=== PATIENT | male | born 1945 | race Caucasian/White ===

== ENCOUNTER 2017-01-05 09:12 | Outpatient (CLI) | payer MEDICARE, OTHER ==
[2017-01-05 10:41] LABS: ALT (SGPT) 18 U/L (0-55); AST (SGOT) 16 U/L (5-34); Alkaline Phosphatase 51 U/L (40-150); Anion Gap 15 mmol/L (10-20); BUN (Urea Nitrogen) 16 mg/dL (8.4-25.7); Bilirubin, Total 0.9 mg/dL (0.2-1.2); Calc. Creatinine Clearance 0 mL/min (70-130); Calcium 9.2 mg/dL (7.8-10.44); Carbon Dioxide 27 mmol/L (23-31); Cardiac Risk 3.5 (Less than 4.5); Chloride 104 mmol/L (98-107); Cholesterol 101 mg/dL (< 200 Desired); Estimated GFR-MDRD 76; Globulin 2.9 g/dL (2.4-3.5); Glucose 70 mg/dL (80-115); HDL Cholesterol 29 mg/dL (>60 Neg Risk); LDL Cholesterol, Calculated 52 mg/dL; Potassium 4.1 mmol/L (3.5-5.1); Protein, Total 6.9 g/dL (5.8-8.1); Sodium 142 mmol/L (136-145); Triglycerides 101 mg/dL (Less than 150)
[2017-01-05 10:53] LABS: #Basophils 0.1 thou/uL (0.0-0.2); #Eosinphils 0.2 thou/uL (0.0-0.7); #Lymphocytes 1.5 thou/uL (1.20-3.40); #Monocytes 1.2 thou/uL (0.11-0.59); #Neutrophils 8.7 thou/uL (1.40-6.50); %Basophils 0.6 % (0.0-1.0); %Eosinophils 1.9 % (0.0-10.0); %Lymphocytes 12.9 % (21.0-51.0); %Monocytes 10.4 % (0.0-10.0); %Neutrophils 74.2 % (42.0-75.0); Hemoglobin 16.1 g/dL (14.0-18.0); Mean Corpuscular HGB CONC 32.1 g/dL (32.0-36.0); Mean Corpuscular Hemoglobin 27.9 pg (27.0-31.0); Mean Corpuscular Volume 86.8 fl (80.0-94.0); Mean Platelet Volume 9.4 fL (7.4-10.4); Platelet Count 194 thou/uL (130-400); RBC Distribution Width 17.3 % (11.5-14.5); Red Blood Cell (RBC) Count 5.78 mill/uL (4.70-6.10); White Blood Cell (WBC) Count 11.7 thou/uL (4.8-10.8)
== END 2017-01-05 09:13 | disposition home or self-care (01) ==
LOC: HPCALD 09:12
PROVIDERS: ATTEND Family Medicine
DX: Z12.5 Encounter for screening for malignant neoplasm of prostate (principal); I10 Essential (primary) hypertension; E78.5 Hyperlipidemia, unspecified; E29.1 Testicular hypofunction
CPT/HCPCS: 36415; 80053; 80061; 84403; 85025; G0103

== ENCOUNTER 2017-02-14 07:56 | Outpatient (CLI) | payer MEDICARE, OTHER ==
[2017-02-14 08:29] LABS: ALT (SGPT) 18 U/L (8-55); AST (SGOT) 13 U/L (5-34); Albumin 4.1 g/dL (3.4-4.8); Alkaline Phosphatase 47 U/L (40-150); Anion Gap 16 mmol/L (10-20); BUN (Urea Nitrogen) 20 mg/dL (8.4-25.7); Bilirubin, Total 0.7 mg/dL (0.2-1.2); Calc. Creatinine Clearance 0 mL/min (70-130); Calcium 9.7 mg/dL (7.8-10.44); Carbon Dioxide 31 mmol/L (23-31); Cardiac Risk 3.7 (Less than 4.5); Chloride 103 mmol/L (98-107); Cholesterol 116 mg/dl (< 200 Desired); Estimated GFR-MDRD 60; Globulin 3.3 g/dL (2.4-3.5); Glucose 210 mg/dL (80-115); HDL Cholesterol 31 mg/dL (>60 Neg Risk); LDL Cholesterol, Calculated 55 mg/dL; Potassium 4.8 mmol/L (3.5-5.1); Protein, Total 7.4 g/dL (5.8-8.1); Sodium 145 mmol/L (136-145); Triglycerides 151 mg/dL (Less than 150)
== END 2017-02-14 07:57 | disposition home or self-care (01) ==
LOC: BURLAB 07:56
PROVIDERS: ATTEND Internal Medicine Cardiovascular Disease
DX: E78.00 Pure hypercholesterolemia, unspecified (principal)
CPT/HCPCS: 36415; 80053; 80061

== ENCOUNTER 2018-07-25 14:30 | Outpatient (CLI) | payer MEDICARE ==
--- NOTE | 2018-07-25 20:36 | RAD ---
LEFT HIP TWO VIEWS 07/25/18 No fracture is seen. There is minor joint spaces narrowing but the articular surfaces are smooth. Min imal bony spurring is present. the adjacent pubic ring appears intact. IMPRESSION: Minimal arthritic changes. POS: HOME
== END 2018-07-25 14:31 | disposition home or self-care (01) ==
LOC: BURRAD 14:30
PROVIDERS: ATTEND Family Medicine
DX: M25.552 Pain in left hip (principal); M16.12 Unilateral primary osteoarthritis, left hip

== ENCOUNTER 2018-08-22 21:24 | Emergency (ER) | payer MEDICARE ==
[2018-08-22] MEDS ORDERED: Fentanyl 100 MCG/2 ML VIAL ONE (21:31)
[2018-08-22] MEDS ORDERED: Nitroglycerin 50 MG/250 ML BOT 250 ML ONE (21:34)
[2018-08-22] MEDS ORDERED: Furosemide 100 MG/10 ML VIAL ONE (21:34)
[2018-08-22 21:46] LABS: #Lymphocytes 0.3 thou/uL (1.20-3.40); #Monocytes 0.3 thou/uL (0.11-0.59); #Neutrophils 10.4 thou/uL (1.40-6.50); %Basophils 0.4 % (0.0-1.0); %Monocytes 2.3 % (0.0-10.0); %Neutrophils 94.4 % (42.0-75.0); Hemoglobin 18.3 g/dL (14.0-18.0); Mean Corpuscular HGB CONC 35.3 g/dL (32.0-36.0); Mean Corpuscular Hemoglobin 30.5 pg (27.0-31.0); Mean Corpuscular Volume 86.3 fL (78.0-98.0); Mean Platelet Volume 9.4 fL (7.4-10.4); Platelet Count 176 thou/uL (130-400); RBC Distribution Width 12.4 % (11.5-14.5)
[2018-08-22] MEDS ORDERED: DOPamine 400 MG/D5W 250 ML 250 ML ONE (21:49)
[2018-08-22 21:55] LABS: ALT (SGPT) 17 U/L (8-55); AST (SGOT) 22 U/L (5-34); Albumin 3.7 g/dL (3.4-4.8); Alkaline Phosphatase 75 U/L (40-150); Anion Gap 21 mmol/L (10-20); BUN (Urea Nitrogen) 30 mg/dL (8.4-25.7); Bilirubin, Total 1.4 mg/dL (0.2-1.2); Calc. Creatinine Clearance 0 mL/min (70-130); Calcium 10.3 mg/dL (7.8-10.44); Carbon Dioxide 21 mmol/L (23-31); Chloride 93 mmol/L (98-107); Estimated GFR-MDRD 54; Globulin 3.8 g/dL (2.4-3.5); Glucose 520 mg/dL (83-110); Potassium 4.2 mmol/L (3.5-5.1); Protein, Total 7.5 g/dL (5.8-8.1); Sodium 131 mmol/L (136-145)
[2018-08-22] MEDS ORDERED: Insulin Regular 300 UNITS/3 ML VIAL ONE (22:02)
--- NOTE | 2018-08-22 22:02 | RAD ---
PORTABLE CHEST 08/22/18 An AP portable film at 2112 is compared with a 10/03/17 study from [facility]. Diffuse pulmonary edema and vascular congestion is present. There is some focal increase in density i n the right base. I belief the odds are greatest that this is all due to pulmonary edema. A superimpo sed pneumonia is not strictly ruled out but seems less likely. The heart is mildly enlarged and a bit more so that it was before. Median sternotomy sutures are seen from prior surgery. IMPRESSION: Diffuse pulmonary edema. POS: HOME
[2018-08-22 22:13] LABS: CKMB 1.8 ng/mL (0-6.6)
[2018-08-22 22:20] LABS: CO2 Tension (PvCO2) 39.9 mmHg (41.0-51.0); Calcium, Ionized 1.09 mmol/L (1.12-1.32); Hemoglobin - Calc 21.5 g/dL (12.0-18.0); O2 Tension (PvO2) 77.1 mmHg (35.0-45.0); Potassium 4.3 mmol/L (3.4-4.7); T. Carbon Dioxide 25.2 mmol/L (1.0-85.0); pH (Venous) 7.386 (7.35-7.45); vO2 Saturation-calc 95.1 % (94-98)
== END 2018-08-22 22:19 | disposition short-term general hospital (02) ==
LOC: BURERS 21:24
DX: I21.4 Non-ST elevation (NSTEMI) myocardial infarction (principal); R57.0 Cardiogenic shock; J81.0 Acute pulmonary edema; E11.9 Type 2 diabetes mellitus without complications; E78.5 Hyperlipidemia, unspecified; I11.0 Hypertensive heart disease with heart failure; I50.9 Heart failure, unspecified; Z87.891 Personal history of nicotine dependence; Z79.899 Other long term (current) drug therapy
CPT/HCPCS: 36416; 71045; 80053; 82330; 82553; 82803; 83880; 84484; 85025; 96374; 96375; J1265; J1815; J1940; J3010